=== PATIENT | female | born 1955 | race Caucasian/White ===

== ENCOUNTER 2018-08-29 02:16 | Inpatient (IN) | payer MEDICARE, MEDICAID ==
[2018-08-28 13:31] LABS: INR 0.91
[2018-08-29] VITALS (15 sets, daily range): BP systolic 119–176; BP diastolic 68–142
[~2018-08-29] VITALS: Ht 165.1 cm; Wt 90.3 kg
[~2018-08-29 02:16] MED LIST: ACET-1966 PO; ALB18R INH; AMIT-106 PO; AMIT100T53 PO; ASPI81TA94 PO; BUDE10.2 INH; CALC600T63 PO; CHOL400C10 PO; EPIN0.3P3 IM; FAMO-67 PO; FLUO-177 PO; GABA-549 PO; IBUP600T22 PO; INSU300I SUBQ; IPRA15SP7 NS; ISOS30TA54 PO; MELO-205 PO; METF-450 PO; NITR0.4T3 SL; PANT40TA65 PO; PER PO; PROG200C PO
[2018-08-29] MEDS ORDERED: TRANEXAMIC AC 1000 MG/10ML SDV 1,000 MG in DEXTROSE 5% 50 ML BAG 50 ML IV ONE (06:15)
[2018-08-29] MEDS ORDERED: PREGABALIN 150 MG CAPSULE PO ONE (06:15)
[2018-08-29] MEDS ORDERED: ROPIVACAINE/EPI/CLONIDINE/KET 50 ML SYRINGE INJ ONE (06:15)
[2018-08-29] MEDS ORDERED: CELECOXIB 200 MG CAP PO ONE (06:15)
[2018-08-29] MEDS ORDERED: ceFAZolin(*) 2GM/D5W 50ML 50 ML IVPB ONE (06:15)
[2018-08-29] MEDS ORDERED: LIDOCAINE/SOD BICARB 8.4% SYR ID ONE (06:15)
[2018-08-29] MEDS ORDERED: ROPIVACAINE 0.2% 400 MG/200ML 250 ML CONINFUS ONE (06:15)
[2018-08-29] MEDS ORDERED: MIDAZOLAM 2 MG/2 ML VIAL IVP PRN (06:15)
[2018-08-29] MEDS ORDERED: NORMOSOL R SOLN(*) 1000 ML BAG 1,000 ML IV PRN ×2 (06:15→10:10)
[2018-08-29] MEDS ORDERED: ACETAMINOPHEN 500 MG TAB PO ONE (06:15)
[2018-08-29] MEDS ORDERED: fentaNYL CITR 250 MCG/5 ML AMP ONE (06:36)
[2018-08-29] MEDS ORDERED: PROPOFOL EMUL(*) 10MG/ML 20 ML 20 ML ONE (06:37)
[2018-08-29] MEDS ORDERED: LIDOCAINE 2% IV 100 MG/5ML SYR ONE (06:37)
[2018-08-29] MEDS ORDERED: DEXAMETHASONE SOD PHOS 10MG/ML ONE (07:04)
[2018-08-29] MEDS ORDERED: EPINEPHrine HCL 1 MG/ML AMP ONE (07:04)
[2018-08-29] MEDS ORDERED: ROPIVACAINE 0.5% 20 ML VIAL ONE (07:04)
[2018-08-29] MEDS ORDERED: DEXAMETHASONE SOD 4 MG/ML VIAL ONE (07:39)
[2018-08-29] MEDS ORDERED: ONDANSETRON 4 MG/2 ML VIAL ONE (07:42)
[2018-08-29] MEDS ORDERED: KETAMINE HCL 200 MG/20 ML MDV ONE ×2 (07:43→08:43)
[2018-08-29] MEDS ORDERED: LACTATED RINGER 3000 ML BAG IR ONE (08:13)
[2018-08-29] MEDS ORDERED: NS 0.9% IRRIGATION 1000ML PLCT IR ONE (08:13)
[2018-08-29] MEDS ORDERED: WATER STERILE FOR IRRIG 1000ML IR ONE (08:13)
[2018-08-29] MEDS ORDERED: fentaNYL CITR 100 MCG/2 ML AMP ONE ×2 (09:39→09:51)
[2018-08-29] MEDS ORDERED: ONDANSETRON 4 MG/2 ML VIAL IVP PRN (10:10)
[2018-08-29] MEDS ORDERED: ZOLPIDEM TARTRATE 5 MG TAB PO PRN (10:10)
[2018-08-29] MEDS ORDERED: MAGNESIUM HYDROXIDE* 30ML UDCP PO PRN (10:10)
[2018-08-29] MEDS ORDERED: BISACODYL 10 MG SUPP PR PRN (10:10)
[2018-08-29] MEDS ORDERED: FLUSH 10 ML SYR IVP PRN (10:10)
[2018-08-29] MEDS ORDERED: KETOROLAC TROM 10MG TAB PO PRN (10:10)
[2018-08-29] MEDS ORDERED: PROMETHAZINE 25 MG/ML 1 ML AMP IVP PRN (10:10)
--- NOTE | 2018-08-29 10:40 | RADIOLOGY IMAGING REPORT ---
FACILITY: [facility] PATIENT NAME: Jay Neil : 1955 MR: [id number] V: [id number] EXAM DATE: ORDERING PHYSICIAN: SUJIT MADDEN TECHNOLOGIST: Location: [facility] [place] Patient: Jay Neil : 1955 Visit/Account:[id number] Date of Sevice: 08/29/2018 EXAMINATION: Right knee, 2 views 08/29/2018 9:07 AM HISTORY: S/P TOTAL KNEE ARTHROPLASTY COMPARISON: None available FINDINGS: Status post right total knee arthroplasty. Femoral and tibial components appear to articu late well. Postoperative ventral soft tissue gas. Lucencies along the shafts of the distal femur an d proximal tibia separate from the prostheses may reflect previous ORIF which has been removed. IMPRESSION: Status post right TKA. Report Dictated By: Tc Suresh MD at 08/29/2018 10:33 AM Report E-Signed By: Tc Suresh MD at 08/29/2018 10:35 AM WSN:LADAN
[2018-08-29] MEDS: ACETAMINOPHEN 500 MG TAB PO SCH ×2 (12:00→20:10)
[2018-08-29] MEDS ORDERED: ALBUTEROL 8 GM INHALER INH PRN (12:40)
[2018-08-29] MEDS ORDERED: BUDESO/FORMOT 160/4.5 MCG 6 GM INH PRN (12:40)
--- NOTE | 2018-08-29 12:43 | OPERATIVE REPORT 1 ---
EVENT DATE: August 29, 2018 SURGEON: Vishnu Prabhakar MD ANESTHESIOLOGIST: Al Chau MD ANESTHESIA: Right adductor block, indwelling, followed by general anesthesia. 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 PROCEDURE PERFORMED Right total knee arthroplasty. IMPLANTS MicroPort medial pivot CS system with a 3 femur, 4 tibia, 10 mm CS insert, 8 x 32 symmetric patella, femur cut 6 degrees valgus, 10 mm. We utilized two packages of DonJoy [place] Blue cement, ZipLine Wound Closure System and 50 cc's of our standard Toradol/ropivacaine cocktail. SPECIMENS None. COMPLICATIONS None. BLOOD LOSS Less than 100 cc's. OPERATION The patient received appropriate preoperative antibiotic, was brought to the OR, where Dr. Chau performed right adductor patellar block with indwelling catheter followed by general anesthesia. Right thigh tourniquet was placed but it was not utilized. Right lower extremity was prepped and draped in the usual sterile fashion. Midline incision was made followed by a medial parapatellar arthrotomy. I dissected subperiosteally along the medial tibial plateau to the level of the semimembranosus insertion. Fat pad was then excised, patella released and everted. The scar tissue in the lateral gutter was also released. The knee was brought up into flexion. ACL and PCL were released subperiosteally by Bovie. The remaining articular cartilage was removed from the distal femoral condyle by sagittal saw to expose the bone. Step-cut drill was utilized to broach the femoral canal just above the PCL insertion. Then we placed our intramedullary guide for a distal cut. A cutting block was set up at 10 mm, 6 degrees valgus, pinned into placed with care to protect the soft tissue. Distal cut was made. I then placed a 3-degree external rotation guide incisor, referencing off the anterior flange, epicondyles and posterior condyles and we drilled the 3-degree external rotation holes and sized those to a #3. Four-in-one cutting guide was positioned followed by Z-retractors to protect the soft tissue. We made our four cuts. The tibia was brought anterior in the femur with appropriate retractors. Step- cut drill was utilized to broach the intramedullary canal. Intramedullary guide was then positioned and referencing 2 mm off the eburnated lateral tibial plateau. We referenced through rotation also and pinned the block into place. Care was taken to protect the soft tissues. We made our tibial cut. This was sized to a #4. The stump of the ACL and PCL, medial and lateral meniscus were removed by [place]. Curved osteotome was utilized to remove posterior osteophytes and a Ag elevator utilized to elevate the posterior capsule and gastroc insertion. At this point, I also fully released the IT band off its insertion on Gerdy's tubercle. We then placed appropriate retractors, placed our tibial baseplate, referencing previous rotation, pinned this into place, placed a 10 mm insert and then our #3 femur. We achieved full tension, which she is stable to varus and valgus stress at 90 degrees with good endpoint and anterior drawer. The knee was brought in full extension. Patella was sized to 21 mm. This was cut down to 15 mm with a 6-degree guide. Peg hole guide positioned inferiorly and medially. Peg holes were drilled. We placed our 32 x 8 button. Knee was brought up into flexion. Peg hole was drilled through the femur. These were placed. We cut for a trochlear chip and this was placed. Again, we had the aforementioned full extension, flexion to 130 degrees which is limited only by body habitus. Patella tracked well. Again, we had the stability previously noted. The knee was brought into 90 degrees. Patella, femur and tibial insert were removed. Appropriate retractors were placed. We placed our tibial patella. This was cut, reamed and punched and instrumentation was removed. Bone plug was placed in the distal femur. We utilized at 1.5 mm drill bit to drill the sclerotic bone in the lateral aspect of the patella and posterior lateral tibial plateau. I then injected 10 cc's of our cocktail in the posterior capsule and copiously irrigated by pulse lavage while we mixed two packages of [employer]Joy [place] blue cement. The knee was placed in appropriate position. Starting at the tibial implant, this was placed followed by our 10 mm CS insert and then our femur. Excess cement was removed, knee brought in full extension with axial compression while we cemented patella. We then injected the remaining cocktail into the distal quad mechanism and then copiously irrigated by pulse lavage. As 12-1/2 minutes, the cement had cured and, again, we had the aforementioned range of motion and stability. We copiously irrigated one more time and then placed the knee at 30 degrees, closed the arthrotomy with #2 Vicryl in [id number] suture fashion followed by 2-0 Vicryl for subcutaneous tissues. Then with the knee placed at 45 degrees and after cleaning the wounds, we placed our ZipLine Wound Closure System. The knee was brought in full extension. Compressive dressing was applied. Patient extubated and taken to recovery in stable condition. Hospitalist team to be consulted for medical management and PT for rehab. MIRELLA
--- NOTE | 2018-08-29 12:53 | Hospitalist Consultation ---
History of Present Illness Requesting Physician Dr. Prabhakar Reason for Consult Medical Management Chief Complaint s/p right knee replacement History of Present Illness She was admitted s/p right knee replacement. It is reported the surgery went well and without complication. History Problems: (1) Seasonal allergies Status: Chronic (2) Type 2 diabetes mellitus Status: Chronic (3) FREDERICK (obstructive sleep apnea) Status: Chronic (4) GERD (gastroesophageal reflux disease) Status: Chronic (5) Depression Status: Chronic Home Meds Reported Medications Amitriptyline Hcl (AMITRIPTYLINE HCL) 25 Mg Tablet, 25 MG PO QHS, #5 TAB 08/22/18 Fluoxetine Hcl (FLUOXETINE HCL) 20 Mg Capsule, 40 MG PO QDAY, CAPSULE 08/22/18 Epinephrine (EPINEPHRINE) 0.3 Mg/0.3 Ml Pen.injctr, 0.3 MG IM ONCE PRN for ALLERGY SYMPTOMS 08/11/18 Progesterone,Micronized (PROGESTERONE) 200 Mg Capsule, 200 MG PO QHS, CAPSULE 08/11/18 Meloxicam (MELOXICAM) 7.5 Mg Tablet, 7.5 MG PO QDAY 08/11/18 Acetaminophen (TYLENOL) 325 Mg Tablet, 325 MG PO PRN PRN for PAIN, TAB 08/11/18 Ibuprofen (IBUPROFEN) 600 Mg Tablet, 1 TAB PO BID PRN for PAIN, TAB 08/11/18 Nitroglycerin (NITROGLYCERIN) 0.4 Mg Tab.subl, 0.4 MG SL Q5MIN PRN for CHEST PAIN 08/11/18 Albuterol Sulfate (VENTOLIN HFA) 18 Gm Inh, 2 PUFF INH PRN PRN for SHORTNESS OF BREATH, INH 08/11/18 Budesonide/Formoterol Fumarate (SYMBICORT 160-4.5 MCG INHALER) 10.2 Gm Inh, 2 PUFF INH PRN PRN for SHORTNESS OF BREATH, INH 08/11/18 Aspirin (ASPIRIN) 81 Mg Tab.chew, 81 MG PO QHS, TAB.CHEW 08/11/18 Gabapentin (GABAPENTIN) 300 Mg Capsule, 300 MG PO QHS, CAPSULE 08/11/18 Metformin Hcl (METFORMIN HCL) 500 Mg Tablet, 1 TAB PO BID, TAB 08/11/18 Famotidine (FAMOTIDINE) 20 Mg Tablet, 20 MG PO QDAY, TAB 08/11/18 Pantoprazole Sodium (PANTOPRAZOLE SODIUM) 40 Mg Tablet.dr 40 MG PO QDAY, TAB.SR 08/11/18 Cholecalciferol (Vitamin D3) (VITAMIN D) 400 Unit Capsule, 800 MG PO BID, CAPSULE 08/11/18 Calcium Carbonate (CALCIUM) 600 Mg Tablet, 600 MG PO BID 08/11/18 Ipratropium [place] 0.06% Ns (IPRATROPIUM BROMIDE 0.06% NS) 15 Ml [place], 2-3 SPRAY NS DAILY PRN for ALLERGY SYMPTOMS, SPRAY 08/11/18 Insulin Glargine,Hum.rec.anlog (Toujeo Solostar) 300 Unit/1 Ml Insuln.pen, 18 SUBQ QPM 08/11/18 Insulin Glargine,Hum.rec.anlog (Toujeo Solostar) 300 Unit/1 Ml Insuln.pen, 38 SUBQ QAM 08/11/18 Discontinued Reported Medications Isosorbide Mononitrate (ISOSORBIDE MONONITRATE ER) 30 Mg Tab.er.24h, 30 MG PO QAM 08/11/18 Amitriptyline Hcl (AMITRIPTYLINE HCL) 100 Mg Tablet, 100 MG PO QHS, TAB 08/11/18 Oxycodone/Acetaminophen (OXYCODONE/ACETAMINOPHEN 5MG/325 MG) 5 Mg/325 Mg Tab, 1 TAB PO PRN PRN for PAIN 08/11/18 Amitriptyline Hcl (AMITRIPTYLINE HCL) 100 Mg Tablet, 100 MG PO QHS, TAB 08/11/18 Fluoxetine Hcl (FLUOXETINE HCL) 20 Mg Capsule, 20 MG PO QDAY, CAPSULE 08/11/18 Allergies: Coded Allergies: AVILA Inhibitors (Verified Allergy, Severe, ANAPHALATIC REACTION, 06/27/18) loratadine (Verified Allergy, Severe, ITCHING, 06/27/18) morphine (Verified Allergy, Severe, STOPPED BREATHING, 06/27/18) montelukast (Verified Allergy, Intermediate, ITCHING, 06/27/18) Uncoded Allergies: BETA BLOCKERS (Allergy, Severe, ANAPHALACTIC RESPONSE, 06/27/18) WASP STINGS (Allergy, Severe, ANAPHALACTIC RESPONSE, 06/27/18) CARRIES EPI PEN HAND SANITIZERS (Allergy, Unknown, SINUS PROBLEMS, 06/27/18) LAUNDRY DETERGENT (Allergy, Unknown, BREAKS OUT IN RASH, 06/27/18) Patient History: Cardiac pacemaker MOTHER FH: CHF (congestive heart failure) FATHER Hx Smoking: Yes (1 06/22 PPD X 25, QUIT 02/2018) Smoking Status: Former Smoker Caffeine Intake: Soda Caffeine/Cups Per Day: DECAF TEA AND SODA Hx Alcohol Use: No Hx Substance Use Disorder: No Social Drug Use: Never History of IV Drug Use: No Review of Systems All Systems Reviewed/Normal: Yes, Except as Noted Exam Vital Signs Vital Signs Date Time Temp Pulse Resp B/P (MAP) Pulse Ox O2 Delivery O2 Flow Rate FiO2 08/29/18 10:46 98.1 86 20 140/70 (93) 91 Nasal Cannula 3.0 General Appearance: Alert, Awake, No Acute Distress, Afebrile Neuro: No Gross deficits Cardiovascular: Regular Rate and Rhythm Respiratory: No Respiratory Distress, Clear to Auscultation GI: Abd Soft and Non-Tender Psych: Alert & Oriented X3, Appropriate Mood & Affect Assessment and Plan Problems: (1) Status post right knee replacement Status: Acute Assessment & Plan: Followed by Dr. Prabhakar. She will be placed on Aspirin 325mg for DVT prophylaxis. (2) Type 2 diabetes mellitus Status: Chronic Assessment & Plan: She is on chronic treatment with Metformin and Trujeo. She will be placed on SS insulin #2 and Metformin will start tomorrow, as well as AC/HS blood glucose monitoring. (3) GERD (gastroesophageal reflux disease) Status: Chronic Assessment & Plan: She is on chronic treatment with Famotidine and Protonix. Continue. (4) Depression Status: Chronic Assessment & Plan: She is on chronic treatment with Fluoxetine. Continue. (5) Seasonal allergies Status: Chronic Assessment & Plan: She is on as needed treatment with Albuterol and Symbicort inhalers. Continue. (6) FREDERICK (obstructive sleep apnea) Status: Chronic Assessment & Plan: She is on chronic treatment with CPAP with 2Liters oxygen. She did bring her machine to use during admission. Venous Thromboembolism Antithrombotics Is Pt On Any Antithrombotics?: RODOLFO Desai Aug 29, 2018 12:53
--- NOTE | 2018-08-29 14:55 | NUR ---
Physical Therapy Impression PT eval completed. Pt tolerated side stepping along edge of bed, but was somewhat lethargic and not safe to support weight bearing appropriately with UE's for longer distance ambulation at this time. Pt completed [id number] to BSC with Min/CGA and then returned to bed after voiding. Anticipate possible further rehab prior to discharge home, as pt will need to be fully indep with basic ADLs. Physical Therapy Goals 1. Pt to be modified indep with bed mobility and supine to/from sit trnsfrs 2. Pt to be modified indpe with sit to/from stand transfers 3. Pt to ambulate x 150' with least restrictive device and modified indep 4. Pt to complete up/down 4 steps with rail with SBA/CGA Patient's Goals
[2018-08-29] MEDS ORDERED: NS(*) 0.9% 500 ML BAG 500 ML ONE (15:32)
[2018-08-29] MEDS: oxyCODONE HCL 5 MG CAP PO PRN ×2 (15:37→20:11)
[2018-08-29] MEDS: ceFAZolin(*) 2GM/D5W 50ML 50 ML IVPB SCH ×2 (15:37→22:32)
[2018-08-29] MEDS: INSULIN HUM LISPRO 100 UN/ML 3 ML VIAL SUBQ PRN ×2 (17:34→20:16)
[2018-08-29] MEDS: GABAPENTIN 300 MG CAP PO SCH (20:11)
[2018-08-29] MEDS ORDERED: AMITRIPTYLINE HCL 25 MG TAB PO SCH (21:00)
[2018-08-29] MEDS: traMADol 50 MG TAB PO PRN (22:32)
[2018-08-30] VITALS (8 sets, daily range): BP systolic 131–172; BP diastolic 62–93; Ht 165.1 cm; Wt 90.3 kg
[2018-08-30] MEDS: oxyCODONE HCL 5 MG CAP PO PRN ×5 (00:32→20:38)
[2018-08-30] MEDS: ACETAMINOPHEN 500 MG TAB PO SCH ×3 (04:24→19:24)
[2018-08-30] MEDS ORDERED: oxyCODONE HCL 5 MG CAP ONE (04:27)
[2018-08-30] MEDS: traMADol 50 MG TAB PO PRN ×3 (06:09→19:24)
[2018-08-30] MEDS: ceFAZolin(*) 2GM/D5W 50ML 50 ML IVPB SCH (06:10)
[2018-08-30] MEDS: INSULIN HUM LISPRO 100 UN/ML 3 ML VIAL SUBQ PRN ×4 (07:45→20:41)
[2018-08-30] MEDS: metFORMIN HCL 500 MG TAB PO SCH ×2 (07:46→20:38)
[2018-08-30] MEDS: FLUoxetine HCL 20 MG CAP PO SCH (07:46)
[2018-08-30] MEDS: PANTOPRAZOLE SOD 40 MG TABEC PO SCH (07:46)
[2018-08-30] MEDS: ASPIRIN 325 MG TAB PO SCH (07:46)
[2018-08-30] MEDS: FAMOTIDINE 20 MG TAB PO SCH (07:46)
[2018-08-30] MEDS: DOCUSATE SODIUM 100 MG CAP PO SCH ×2 (09:23→20:39)
[2018-08-30] MEDS: INSULIN GLARGINE 100 U/ML 3 ML PEN SUBQ SCH ×2 (09:24→20:39)
--- NOTE | 2018-08-30 09:55 | Hospitalist Progress Note ---
Subjective Progress Notes Subjective She was admitted s/p knee replacement. She does have some elevated blood glucose levels since admission. She has no complaints this morning. Patient Complains of: Cardiovascular: No: Chest Pain Respiratory: No: Shortness of Breath Physical Exam Vital Signs Date Time Temp Pulse Resp B/P (MAP) Pulse Ox O2 Delivery O2 Flow Rate FiO2 08/30/18 07:41 98.3 68 18 152/85 (107) 99 Nasal Cannula 3.0 Intake and Output 08/30/18 00:59 Intake Total 2250 ml Balance 2250 ml Intake Oral 250 ml IV Total 2000 ml # Voids 6 General Appearance: Alert, Awake, No Acute Distress, Afebrile Neuro: No Gross deficits Cardiovascular: Regular Rate and Rhythm Respiratory: No Respiratory Distress, Clear to Auscultation GI: Soft and Non-Tender Psych: Alert & Oriented X3, Appropriate Mood & Affect Assessment and Plan Problems: (1) Status post right knee replacement Status: Acute Assessment & Plan: Followed by Dr. Prabhakar. She will be placed on Aspirin 325mg for DVT prophylaxis. (2) Type 2 diabetes mellitus Status: Chronic Assessment & Plan: She is on chronic treatment with Metformin and Trujeo. She will be placed on SS insulin #2 and Metformin, as well as AC/HS blood glucose monitoring. Will start on Lantus 10units twice daily. (3) GERD (gastroesophageal reflux disease) Status: Chronic Assessment & Plan: She is on chronic treatment with Famotidine and Protonix. Continue. (4) Depression Status: Chronic Assessment & Plan: She is on chronic treatment with Fluoxetine. Continue. (5) Seasonal allergies Status: Chronic Assessment & Plan: She is on as needed treatment with Albuterol and Symbicort inhalers. Continue. (6) FREDERICK (obstructive sleep apnea) Status: Chronic Assessment & Plan: She is on chronic treatment with CPAP with 2Liters oxygen. She did bring her machine to use during admission. Exam Sepsis Risk: No Definite Risk RODOLFO CID Aug 30, 2018 09:55
--- NOTE | 2018-08-30 16:33 | NUR ---
Physical Therapy Impression Pt demos improved tolerance for gait distance, but does require a sitting rest break and notes increased cramping sensation after previous therapy session. Pt requires CGA and use of leg data analyst for bed mobility and supine to/from sit transfers. Physical Therapy Goals 1. Pt to be modified indep with bed mobility and supine to/from sit trnsfrs 2. Pt to be modified indpe with sit to/from stand transfers 3. Pt to ambulate x 150' with least restrictive device and modified indep 4. Pt to complete up/down 4 steps with rail with SBA/CGA Patient's Goals
[2018-08-30] MEDS: GABAPENTIN 300 MG CAP PO SCH (20:38)
[2018-08-30] MEDS ORDERED: KETOROLAC 30 MG/ML VIAL IVP ONE (22:30)
[2018-08-31] MEDS: oxyCODONE HCL 5 MG CAP PO PRN ×5 (01:15→19:24)
[2018-08-31 03:23] VITALS: BP 156/72
[2018-08-31] MEDS: ACETAMINOPHEN 500 MG TAB PO SCH ×3 (03:23→19:23)
[2018-08-31] MEDS: traMADol 50 MG TAB PO PRN (04:21)
[2018-08-31] MEDS: INSULIN GLARGINE 100 U/ML 3 ML PEN SUBQ SCH ×2 (09:00→21:57)
[2018-08-31] MEDS: metFORMIN HCL 500 MG TAB PO SCH ×2 (09:00→21:36)
[2018-08-31] MEDS: FLUoxetine HCL 20 MG CAP PO SCH (09:21)
[2018-08-31] MEDS: PANTOPRAZOLE SOD 40 MG TABEC PO SCH (09:21)
[2018-08-31] MEDS: ASPIRIN 325 MG TAB PO SCH (09:21)
[2018-08-31] MEDS: FAMOTIDINE 20 MG TAB PO SCH (09:21)
[2018-08-31] MEDS: DOCUSATE SODIUM 100 MG CAP PO SCH ×2 (09:21→21:36)
[2018-08-31] MEDS: HYDROmorphone HCL 2 MG/ML SDV IVP PRN ×4 (09:40→22:45)
[2018-08-31 10:22] VITALS: BP 152/76
--- NOTE | 2018-08-31 10:38 | Hospitalist Progress Note ---
Subjective Progress Notes Subjective She was admitted s/p knee replacement. She did have lower blood sugars this morning. Patient Complains of: Cardiovascular: No: Chest Pain Respiratory: No: Shortness of Breath Physical Exam Vital Signs Date Time Temp Pulse Resp B/P (MAP) Pulse Ox O2 Delivery O2 Flow Rate FiO2 08/31/18 10:22 98.5 80 16 152/76 (101) 94 Nasal Cannula 2.5 Intake and Output 08/31/18 07:00 Intake Total 2150 ml Balance 2150 ml Intake Oral 2100 ml IV Total 50 ml # Voids 8 General Appearance: Alert, Awake, No Acute Distress, Afebrile Neuro: No Gross deficits Cardiovascular: Regular Rate and Rhythm Respiratory: No Respiratory Distress, Clear to Auscultation GI: Soft and Non-Tender Psych: Alert & Oriented X3, Appropriate Mood & Affect Assessment and Plan Problems: (1) Status post right knee replacement Status: Acute Assessment & Plan: Followed by Dr. Prabhakar. She will be placed on Aspirin 325mg for DVT prophylaxis. (2) Type 2 diabetes mellitus Status: Chronic Assessment & Plan: She is on chronic treatment with Metformin and Trujeo. She will be placed on SS insulin #2 and Metformin, as well as AC/HS blood glucose monitoring. She was started on Lantus 10units twice daily, but her blood glucose level was decreased this morning. We will hold Metformin and morning dose of Lantus. (3) GERD (gastroesophageal reflux disease) Status: Chronic Assessment & Plan: She is on chronic treatment with Famotidine and Protonix. Continue. (4) Depression Status: Chronic Assessment & Plan: She is on chronic treatment with Fluoxetine. Continue. (5) Seasonal allergies Status: Chronic Assessment & Plan: She is on as needed treatment with Albuterol and Symbicort inhalers. Continue. (6) FREDERICK (obstructive sleep apnea) Status: Chronic Assessment & Plan: She is on chronic treatment with CPAP with 2Liters oxygen. She did bring her machine to use during admission. Exam Sepsis Risk: No Definite Risk RODOLFO CID Aug 31, 2018 10:38
[2018-08-31 15:18] VITALS: BP 148/68
--- NOTE | 2018-08-31 15:57 | NUR ---
Physical Therapy Impression Pt educated on conservative pain management techniques to include ice and elevation to address edema reduction in order to minimize side effects of medications. Pt re-instructed on use of inspirometer and encouraged to utilize it more often as well, as she continues to require 4 L/min of supplemental O2. Pt would benefit from further rehab prior to d/c home and anticipates transfer to short-term rehab in [place] tomorrow if roads are not closed. Physical Therapy Goals 1. Pt to be modified indep with bed mobility and supine to/from sit trnsfrs 2. Pt to be modified indpe with sit to/from stand transfers 3. Pt to ambulate x 150' with least restrictive device and modified indep 4. Pt to complete up/down 4 steps with rail with SBA/CGA Patient's Goals
[2018-08-31 19:32] VITALS: BP_SYST 148; BP_SYST 168; BP_DIAS 68; BP_DIAS 74
[2018-08-31] MEDS: GABAPENTIN 300 MG CAP PO SCH (21:36)
[2018-08-31] MEDS: INSULIN HUM LISPRO 100 UN/ML 3 ML VIAL SUBQ PRN (21:59)
[2018-08-31 22:35] VITALS: BP 144/116
[2018-08-31 22:37] VITALS: BP 157/69
[2018-09-01 02:50] VITALS: BP 184/94
[2018-09-01 02:52] VITALS: BP 172/80
[2018-09-01] MEDS: oxyCODONE HCL 5 MG CAP PO PRN ×2 (02:57→10:45)
[2018-09-01] MEDS: ACETAMINOPHEN 500 MG TAB PO SCH ×2 (04:34→12:44)
[2018-09-01 07:48] VITALS: BP 160/66
[2018-09-01] MEDS: DOCUSATE SODIUM 100 MG CAP PO SCH (09:56)
[2018-09-01] MEDS: metFORMIN HCL 500 MG TAB PO SCH (09:56)
[2018-09-01] MEDS: ASPIRIN 325 MG TAB PO SCH (09:56)
[2018-09-01] MEDS: FAMOTIDINE 20 MG TAB PO SCH (09:57)
[2018-09-01] MEDS: PANTOPRAZOLE SOD 40 MG TABEC PO SCH (09:57)
[2018-09-01] MEDS: FLUoxetine HCL 20 MG CAP PO SCH (09:57)
--- NOTE | 2018-09-01 10:28 | Hospitalist Progress Note ---
Subjective Progress Notes Subjective She has no complaints this morning. She reports she would like to leave today if possible with road conditions. Patient Complains of: Cardiovascular: No: Chest Pain Respiratory: No: Shortness of Breath Physical Exam Vital Signs Date Time Temp Pulse Resp B/P (MAP) Pulse Ox O2 Delivery O2 Flow Rate FiO2 09/01/18 07:48 97 Nasal Cannula 3.0 09/01/18 07:48 97.0 80 18 160/66 (97) Intake and Output 09/01/18 06:59 Intake Total 460 ml Balance 460 ml Intake Oral 460 ml # Voids 7 General Appearance: Alert, Awake, No Acute Distress, Afebrile Neuro: No Gross deficits Cardiovascular: Regular Rate and Rhythm Respiratory: No Respiratory Distress, Clear to Auscultation GI: Soft and Non-Tender Psych: Alert & Oriented X3, Appropriate Mood & Affect Assessment and Plan Problems: (1) Status post right knee replacement Status: Acute Assessment & Plan: Followed by Dr. Prabhakar. She will be placed on Aspirin 325mg for DVT prophylaxis. (2) Type 2 diabetes mellitus Status: Chronic Assessment & Plan: She is on chronic treatment with Metformin and Trujeo. She will be placed on SS insulin #2 and Metformin, as well as AC/HS blood glucose monitoring. She was started on Lantus 10units twice daily, but her blood glucose level was decreased 08/31. We held Metformin and morning dose of Lantus with improvement in blood glucose levels. Will resume Lantus 10units BID and Metformin. (3) GERD (gastroesophageal reflux disease) Status: Chronic Assessment & Plan: She is on chronic treatment with Famotidine and Protonix. Continue. (4) Depression Status: Chronic Assessment & Plan: She is on chronic treatment with Fluoxetine. Continue. (5) Seasonal allergies Status: Chronic Assessment & Plan: She is on as needed treatment with Albuterol and Symbicort inhalers. Continue. (6) FREDERICK (obstructive sleep apnea) Status: Chronic Assessment & Plan: She is on chronic treatment with CPAP with 2Liters oxygen. She did bring her machine to use during admission. Exam Sepsis Risk: No Definite Risk RODOLFO CID Sep 01, 2018 10:28
[2018-09-01] MEDS ORDERED: ASPI-757 PO (10:32)
[2018-09-01] MEDS: INSULIN GLARGINE 100 U/ML 3 ML PEN SUBQ SCH (10:46)
[2018-09-01] MEDS ORDERED: TRAM-420 PO (11:50)
[2018-09-01] MEDS ORDERED: OXYC5TAB38 PO (11:51)
== END 2018-09-01 14:30 | DRG 470 ==
LOC: OR 02:16 → MED 10:40
PROVIDERS: ADMIT Orthopaedic Surgery; ATTEND Orthopaedic Surgery
PROC: 0SRC0J9 Replacement of Right Knee Joint with Synthetic Substitute, Cemented, Open Approach (ICD-10-PCS; principal; 2018-08-29 07:15)
PROC: 5A09357 Assistance with Respiratory Ventilation, Less than 24 Consecutive Hours, Continuous Positive Airway Pressure (ICD-10-PCS; 2018-08-29 07:15)
DX: M17.11 Unilateral primary osteoarthritis, right knee (principal); M24.561 Contracture, right knee; E11.9 Type 2 diabetes mellitus without complications; G47.33 Obstructive sleep apnea (adult) (pediatric); K21.9 Gastro-esophageal reflux disease without esophagitis; J30.2 Other seasonal allergic rhinitis; F32.9 Major depressive disorder, single episode, unspecified; Z79.4 Long term (current) use of insulin; Z88.5 Allergy status to narcotic agent; Z88.8 Allergy status to other drugs, medicaments and biological substances; Z87.891 Personal history of nicotine dependence; Z79.84 Long term (current) use of oral hypoglycemic drugs
CPT/HCPCS: 36415; 36416; 76942; 82948; 85610; 86850; 86900; 86901; 97161; C1713; C1776; J0171; J0690; J1100; J1170; J1815; J1885; J2001; J2250; J2405; J2704; J2795; J3010; J3490; J7040; J7060